=== PATIENT | male | born 1940 | race Caucasian/White ===

== ENCOUNTER 2020-08-23 11:58 | Inpatient (IN) ==
[2020-08-23] MEDS ORDERED: Isovue-370 500 ML BOTTLE IVP ONE (12:18)
[2020-08-23] MEDS ORDERED: Morphine Sulfate 2 MG/ML SYRINGE IVP ONE (12:18)
[2020-08-23 13:03] LABS: Basophils % 0.3 %; Eosinophils % 0.4 %; Hematocrit 33.1 % (37.5-50.1); Hemoglobin 10.8 g/dL (12.9-16.9); Immature Granulocytes % 4.5 % (0-4); Lymphocytes # 0.7 K/mcL (0.6-4.6); Lymphocytes % 8.8 %; Mean Corpuscular HGB Conc 32.6 g/dL (31.6-35.5); Mean Corpuscular Hemoglobin 32.2 pg (28.0-33.3); Mean Corpuscular Volume 98.8 fL (83.0-100.0); Mean Platelet Volume 9.3 fL (9.4-12.4); Monocytes # 0.6 K/mcL (0.0-1.3); Monocytes % 7.7 %; Platelet Count 130 K/mcL (140-400); Red Blood Count 3.35 M/mcL (4.19-5.50); Red Cell Distribution Width 13.8 % (11.5-14.5); Segmented Neutrophils % 78.3 %; White Blood Count 7.6 K/mcL (4.3-11.1)
[2020-08-23 13:22] LABS: Alanine Aminotransferase 22 Units/L (7-52); Albumin 3.1 g/dL (3.5-5.7); Albumin/Globulin Ratio 1.2 (1.1-2.2); Alkaline Phosphatase 76 Units/L (34-104); Aspartate Amino Transferase 18 Units/L (13-39); BUN/Creatinine Ratio 27 (6-26); Bilirubin,Total 0.7 mg/dL (0.3-1.0); Blood Urea Nitrogen 33 mg/dL (8-23); Calcium 8.6 mg/dL (8.6-10.3); Carbon Dioxide 30 mEq/L (23-29); Chloride 100 mEq/L (98-107); Globulin 2.6 g/dL (2.4-3.5); Glucose 113 mg/dL (70-105); Osmolality,Calculated 290 (280-300); Potassium 5.2 mEq/L (3.5-5.1); Sodium 136 mEq/L (136-145); Total Protein 5.7 g/dL (6.4-8.9); Troponin I 0.03 ng/mL (< 0.04); eGFR For African Americans > 60 (> 60); eGFR For Non-African Americans 56 (> 60)
[2020-08-23 13:28] LABS: Bilirubin,Urine Negative (Negative); Blood,Urine Negative (Negative); Clarity,Urine Clear (Clear); Color,Urine Light-Yellow (Yellow); Glucose,Urine (UA) Normal (Normal); Ketones,Urine Negative (Negative); Leukocyte Esterase,Urine Negative (Negative); Nitrite,Urine Negative (Negative); Protein,Urine Trace mg/dL (Neg-Trace)
[2020-08-23] MEDS ORDERED: *HR* OxyCODONE Immed Rel 5 MG TABLET PO STA (15:09)
[2020-08-23] MEDS ORDERED: Ibuprofen 600 MG TABLET PO ONE (15:36)
[2020-08-23] MEDS ORDERED: *HR* HYDROmorphone (PF) 1 MG/ML SYRINGE IVP ONE (15:36)
[2020-08-23] MEDS ORDERED: Naloxone 0.4 MG/ML INJ IVP PRN (16:31)
[2020-08-23] MEDS ORDERED: Acetaminophen 325 MG TABLET PO PRN (16:31)
[2020-08-23] MEDS ORDERED: Mag Hydrox/Al Hydrox/Simeth 30 ML UDC PO PRN (16:31)
[2020-08-23] MEDS ORDERED: Ondansetron ODT 4 MG TAB.RAPDIS SL PRN (16:31)
[2020-08-23] MEDS ORDERED: Albuterol 2.5 MG/3 ML NEBULIZER IH PRN (16:34)
[2020-08-23] MEDS ORDERED: Dexamethasone 4 MG/ML VIAL PO ONE (18:17)
[2020-08-23] MEDS ORDERED: Furosemide 20 MG/2 ML VIAL IVP ONE (18:20)
[2020-08-23] MEDS ORDERED: D5% in Water 1,000 ML IVC PRN (18:22)
[2020-08-23] MEDS ORDERED: *HR* Dextrose 50 % in Water (Vial) 50 ML VIAL IVP PRN (18:22)
[2020-08-23] MEDS ORDERED: Dextrose Gel 15 GM/37.5 ML TUBE PO PRN ×2 (18:22)
[2020-08-23] MEDS ORDERED: Azithromycin 500 MG in 0.9 % Sodium Chloride 250 ML IVPB SCH (19:00)
[2020-08-23 19:32] LABS: Lactate Dehydrogenase 236 Units/L (140-271); Magnesium 1.3 mg/dL (1.6-2.6)
[2020-08-23 19:38] LABS: C-Reactive Protein 130 mg/L (Less than 10)
[2020-08-23 19:57] LABS: Ferritin 528 ng/mL (20-250)
[2020-08-23 20:18] LABS: INR 1.1; Prothrombin Time 12.7 Seconds (9.4-12.1)
[2020-08-23 20:20] LABS: Activated Partial Thrombo Time 25.4 Seconds (26.0-36.0)
[2020-08-23] MEDS: *HR* Heparin 5,000 UNIT/ML VIAL SQ SCH (21:40)
[2020-08-23] MEDS: cefTRIAXone 1,000 MG in Water for inj. (sterile) 10 ML IVP SCH (22:20)
[2020-08-23] MEDS: Insulin LISPRO 300 UNITS/3 ML VIAL SQ SCH (22:23)
[2020-08-24] MEDS: *HR* Heparin 5,000 UNIT/ML VIAL SQ SCH ×3 (05:16→14:08)
[2020-08-24 05:20] LABS: Basophils % 0.3 %; Hematocrit 32.5 % (37.5-50.1); Hemoglobin 10.6 g/dL (12.9-16.9); Immature Granulocytes % 2.2 % (0-4); Lymphocytes # 0.4 K/mcL (0.6-4.6); Lymphocytes % 6.3 %; Mean Corpuscular HGB Conc 32.6 g/dL (31.6-35.5); Mean Corpuscular Hemoglobin 32.4 pg (28.0-33.3); Mean Corpuscular Volume 99.4 fL (83.0-100.0); Mean Platelet Volume 9.3 fL (9.4-12.4); Monocytes # 0.3 K/mcL (0.0-1.3); Monocytes % 4.2 %; Neutrophils # 5.6 K/mcL (1.6-8.9); Platelet Count 110 K/mcL (140-400); Red Blood Count 3.27 M/mcL (4.19-5.50); Red Cell Distribution Width 13.5 % (11.5-14.5); White Blood Count 6.4 K/mcL (4.3-11.1)
[2020-08-24 05:38] LABS: Alanine Aminotransferase 20 Units/L (7-52); Albumin/Globulin Ratio 1.1 (1.1-2.2); Alkaline Phosphatase 78 Units/L (34-104); Aspartate Amino Transferase 19 Units/L (13-39); BUN/Creatinine Ratio 27 (6-26); Bilirubin,Total 0.5 mg/dL (0.3-1.0); Blood Urea Nitrogen 34 mg/dL (8-23); Calcium 8.3 mg/dL (8.6-10.3); Carbon Dioxide 27 mEq/L (23-29); Chloride 98 mEq/L (98-107); Globulin 2.7 g/dL (2.4-3.5); Glucose 259 mg/dL (70-105); Osmolality,Calculated 293 (280-300); Potassium 4.9 mEq/L (3.5-5.1); Sodium 133 mEq/L (136-145); Total Protein 5.7 g/dL (6.4-8.9); eGFR For African Americans > 60 (> 60); eGFR For Non-African Americans 56 (> 60)
[2020-08-24] MEDS: cefTRIAXone 1,000 MG in Water for inj. (sterile) 10 ML IVP SCH (07:46)
[2020-08-24] MEDS: Insulin LISPRO 300 UNITS/3 ML VIAL SQ SCH ×4 (08:00→21:11)
[2020-08-24] MEDS: carvediloL 25 MG TABLET PO SCH (17:30)
[2020-08-24] MEDS: Insulin DETEMIR 100 UNIT/ML X5UNITS SQ SCH (21:11)
[2020-08-25] MEDS: Lisinopril-HCTZ 20-12.5mg TABLET PO SCH (08:07)
[2020-08-25] MEDS: carvediloL 25 MG TABLET PO SCH ×2 (08:07→16:46)
[2020-08-25] MEDS: cefTRIAXone 1,000 MG in Water for inj. (sterile) 10 ML IVP SCH (08:09)
[2020-08-25] MEDS: Insulin LISPRO 300 UNITS/3 ML VIAL SQ SCH ×4 (08:09→22:37)
[2020-08-25] MEDS: *HR* HYDROcodone/Acet 5/325 mg TABLET PO PRN ×2 (08:32→22:36)
[2020-08-25 15:34] LABS: Basophils % 0.4 %; Eosinophils % 0.4 %; Hematocrit 34.4 % (37.5-50.1); Hemoglobin 11.5 g/dL (12.9-16.9); Immature Granulocytes % 2.1 % (0-4); Lymphocytes # 0.4 K/mcL (0.6-4.6); Lymphocytes % 4.7 %; Mean Corpuscular HGB Conc 33.4 g/dL (31.6-35.5); Mean Corpuscular Volume 98.6 fL (83.0-100.0); Mean Platelet Volume 9.8 fL (9.4-12.4); Monocytes # 0.6 K/mcL (0.0-1.3); Monocytes % 6.6 %; Neutrophils # 7.3 K/mcL (1.6-8.9); Platelet Count 155 K/mcL (140-400); Red Blood Count 3.49 M/mcL (4.19-5.50); Red Cell Distribution Width 13.2 % (11.5-14.5); Segmented Neutrophils % 85.8 %; White Blood Count 8.5 K/mcL (4.3-11.1)
[2020-08-25 16:18] LABS: Alanine Aminotransferase 18 Units/L (7-52); Albumin 2.9 g/dL (3.5-5.7); Alkaline Phosphatase 68 Units/L (34-104); Aspartate Amino Transferase 22 Units/L (13-39); BUN/Creatinine Ratio 28 (6-26); Bilirubin,Total 0.4 mg/dL (0.3-1.0); Blood Urea Nitrogen 32 mg/dL (8-23); Calcium 8.3 mg/dL (8.6-10.3); Carbon Dioxide 26 mEq/L (23-29); Chloride 98 mEq/L (98-107); Globulin 2.8 g/dL (2.4-3.5); Glucose 171 mg/dL (70-105); Osmolality,Calculated 285 (280-300); Potassium 4.5 mEq/L (3.5-5.1); Sodium 132 mEq/L (136-145); Total Protein 5.7 g/dL (6.4-8.9); eGFR For African Americans > 60 (> 60); eGFR For Non-African Americans > 60 (> 60)
[2020-08-25] MEDS: Insulin DETEMIR 100 UNIT/ML X5UNITS SQ SCH (22:37)
[2020-08-26 05:52] LABS: Hematocrit 31.4 % (37.5-50.1); Hemoglobin 10.3 g/dL (12.9-16.9); Mean Corpuscular HGB Conc 32.8 g/dL (31.6-35.5); Mean Corpuscular Hemoglobin 32.3 pg (28.0-33.3); Mean Corpuscular Volume 98.4 fL (83.0-100.0); Mean Platelet Volume 9.1 fL (9.4-12.4); Platelet Count 146 K/mcL (140-400); Red Blood Count 3.19 M/mcL (4.19-5.50); Red Cell Distribution Width 13.4 % (11.5-14.5); White Blood Count 5.6 K/mcL (4.3-11.1)
[2020-08-26 05:53] LABS: Basophils % 0.7 %; Eosinophils % 0.4 %; Immature Granulocytes % 3.9 % (0-4); Lymphocytes # 0.5 K/mcL (0.6-4.6); Lymphocytes % 8.9 %; Monocytes # 0.5 K/mcL (0.0-1.3); Monocytes % 9.1 %; Neutrophils # 4.3 K/mcL (1.6-8.9)
[2020-08-26 06:04] LABS: Alanine Aminotransferase 18 Units/L (7-52); Albumin/Globulin Ratio 1.1 (1.1-2.2); Alkaline Phosphatase 76 Units/L (34-104); Aspartate Amino Transferase 17 Units/L (13-39); BUN/Creatinine Ratio 28 (6-26); Bilirubin,Total 0.4 mg/dL (0.3-1.0); Blood Urea Nitrogen 32 mg/dL (8-23); Calcium 8.6 mg/dL (8.6-10.3); Carbon Dioxide 28 mEq/L (23-29); Chloride 98 mEq/L (98-107); Globulin 2.7 g/dL (2.4-3.5); Glucose 141 mg/dL (70-105); Osmolality,Calculated 285 (280-300); Potassium 4.2 mEq/L (3.5-5.1); Sodium 133 mEq/L (136-145); Total Protein 5.7 g/dL (6.4-8.9); eGFR For African Americans > 60 (> 60); eGFR For Non-African Americans > 60 (> 60)
[2020-08-26] MEDS: Insulin LISPRO 300 UNITS/3 ML VIAL SQ SCH ×4 (08:03→20:09)
[2020-08-26] MEDS: Lisinopril-HCTZ 20-12.5mg TABLET PO SCH (08:04)
[2020-08-26] MEDS: carvediloL 25 MG TABLET PO SCH ×2 (08:04→16:55)
[2020-08-26] MEDS: cefTRIAXone 1,000 MG in Water for inj. (sterile) 10 ML IVP SCH (08:05)
[2020-08-26] MEDS: *HR* HYDROcodone/Acet 5/325 mg TABLET PO PRN (11:41)
[2020-08-26] MEDS: *HR* OxyCODONE Immed Rel 5 MG TABLET PO PRN ×2 (16:55→23:09)
[2020-08-26] MEDS: Insulin DETEMIR 100 UNIT/ML X5UNITS SQ SCH (19:44)
[2020-08-27] MEDS: *HR* OxyCODONE Immed Rel 5 MG TABLET PO PRN (06:41)
[2020-08-27 07:04] LABS: Hemoglobin 11.6 g/dL (12.9-16.9); Mean Corpuscular HGB Conc 33.1 g/dL (31.6-35.5); Mean Corpuscular Volume 99.7 fL (83.0-100.0); Mean Platelet Volume 9.1 fL (9.4-12.4); Platelet Count 170 K/mcL (140-400); Red Blood Count 3.51 M/mcL (4.19-5.50); Red Cell Distribution Width 13.6 % (11.5-14.5); White Blood Count 6.3 K/mcL (4.3-11.1)
[2020-08-27 07:22] LABS: Lymphocytes # 0.6 K/mcL (0.6-4.6); Monocytes # 0.4 K/mcL (0.0-1.3); Neutrophils # 5.3 K/mcL (1.6-8.9); Platelet Estimate Normal (Normal); Reactive Lymphocytes Present (Not Present)
[2020-08-27 07:25] LABS: Alanine Aminotransferase 20 Units/L (7-52); Albumin 3.3 g/dL (3.5-5.7); Alkaline Phosphatase 82 Units/L (34-104); Aspartate Amino Transferase 22 Units/L (13-39); BUN/Creatinine Ratio 26 (6-26); Bilirubin,Total 0.6 mg/dL (0.3-1.0); Blood Urea Nitrogen 32 mg/dL (8-23); Calcium 8.9 mg/dL (8.6-10.3); Carbon Dioxide 27 mEq/L (23-29); Chloride 97 mEq/L (98-107); Globulin 3.4 g/dL (2.4-3.5); Glucose 96 mg/dL (70-105); Osmolality,Calculated 283 (280-300); Potassium 4.4 mEq/L (3.5-5.1); Sodium 133 mEq/L (136-145); Total Protein 6.7 g/dL (6.4-8.9); eGFR For African Americans > 60 (> 60); eGFR For Non-African Americans 57 (> 60)
[2020-08-27] MEDS: Insulin LISPRO 300 UNITS/3 ML VIAL SQ SCH ×4 (08:00→21:56)
[2020-08-27 08:04] LABS: Lactate Dehydrogenase 282 Units/L (140-271)
[2020-08-27 08:22] LABS: Ferritin 781 ng/mL (20-250)
[2020-08-27] MEDS: carvediloL 25 MG TABLET PO SCH ×2 (08:30→17:26)
[2020-08-27] MEDS: Lisinopril-HCTZ 20-12.5mg TABLET PO SCH (08:30)
[2020-08-27] MEDS: *HR* HYDROcodone/Acet 5/325 mg TABLET PO PRN ×2 (09:10→17:38)
[2020-08-27 09:15] LABS: Fibrinogen 652 mg/dL (169-393)
[2020-08-27 09:16] LABS: D-Dimer 1401 ng/mLFEU (0-500)
[2020-08-27] MEDS: cefTRIAXone 1,000 MG in Water for inj. (sterile) 10 ML IVP SCH (09:31)
[2020-08-27 11:50] LABS: C-Reactive Protein 125 mg/L (Less than 10)
[2020-08-27] MEDS: *HR* HYDROcodone/Acet 10/325 mg TABLET PO PRN ×2 (14:13→21:56)
[2020-08-27] MEDS: Dexamethasone 4 MG/ML VIAL IVP SCH (14:14)
[2020-08-27] MEDS: Insulin DETEMIR 100 UNIT/ML X5UNITS SQ SCH (21:58)
[2020-08-28] MEDS: *HR* HYDROcodone/Acet 10/325 mg TABLET PO PRN ×2 (04:46→22:03)
[2020-08-28 05:50] LABS: Basophils % 0.4 %; Hematocrit 33.8 % (37.5-50.1); Hemoglobin 10.9 g/dL (12.9-16.9); Immature Granulocytes % 4.9 % (0-4); Lymphocytes # 0.4 K/mcL (0.6-4.6); Lymphocytes % 7.1 %; Mean Corpuscular HGB Conc 32.2 g/dL (31.6-35.5); Mean Corpuscular Hemoglobin 31.8 pg (28.0-33.3); Mean Corpuscular Volume 98.5 fL (83.0-100.0); Mean Platelet Volume 9.4 fL (9.4-12.4); Monocytes # 0.2 K/mcL (0.0-1.3); Monocytes % 3.6 %; Neutrophils # 4.2 K/mcL (1.6-8.9); Platelet Count 176 K/mcL (140-400); Red Blood Count 3.43 M/mcL (4.19-5.50); Red Cell Distribution Width 13.3 % (11.5-14.5); White Blood Count 4.9 K/mcL (4.3-11.1)
[2020-08-28 06:11] LABS: Albumin 3.1 g/dL (3.5-5.7); Albumin/Globulin Ratio 0.9 (1.1-2.2); Bilirubin,Total 0.6 mg/dL (0.3-1.0); Calcium 8.9 mg/dL (8.6-10.3); Globulin 3.3 g/dL (2.4-3.5); Potassium 5.2 mEq/L (3.5-5.1); Total Protein 6.4 g/dL (6.4-8.9)
[2020-08-28] MEDS ORDERED: 0.9 % Sodium Chloride 500 ML IVC ONE (07:33)
[2020-08-28] MEDS: Lisinopril-HCTZ 20-12.5mg TABLET PO SCH (08:55)
[2020-08-28] MEDS: carvediloL 25 MG TABLET PO SCH ×2 (08:55→16:22)
[2020-08-28] MEDS: cefTRIAXone 1,000 MG in Water for inj. (sterile) 10 ML IVP SCH (08:56)
[2020-08-28] MEDS: Insulin LISPRO 300 UNITS/3 ML VIAL SQ SCH ×3 (08:57→22:00)
[2020-08-28] MEDS: Dexamethasone 4 MG/ML VIAL IVP SCH (08:58)
[2020-08-28] MEDS: *HR* HYDROcodone/Acet 5/325 mg TABLET PO PRN (10:05)
[2020-08-28] MEDS ORDERED: 0.9 % Sodium Chloride 250 ML ONE (17:13)
[2020-08-28] MEDS ORDERED: Furosemide 20 MG/2 ML VIAL IVP SCH (19:00)
[2020-08-28] MEDS: Insulin DETEMIR 100 UNIT/ML X5UNITS SQ SCH (22:03)
[2020-08-29 01:16] LABS: Basophils % 0.1 %; Hematocrit 27.3 % (37.5-50.1); Immature Granulocytes % 1.8 % (0-4); Lymphocytes # 0.3 K/mcL (0.6-4.6); Lymphocytes % 4.4 %; Mean Corpuscular HGB Conc 33.7 g/dL (31.6-35.5); Mean Corpuscular Hemoglobin 32.9 pg (28.0-33.3); Mean Corpuscular Volume 97.5 fL (83.0-100.0); Mean Platelet Volume 9.2 fL (9.4-12.4); Monocytes # 0.4 K/mcL (0.0-1.3); Monocytes % 4.5 %; Platelet Count 176 K/mcL (140-400); Red Cell Distribution Width 13.2 % (11.5-14.5); Segmented Neutrophils % 89.2 %
[2020-08-29 01:21] LABS: Hemoglobin 9.2 g/dL (12.9-16.9); White Blood Count 7.8 K/mcL (4.3-11.1)
[2020-08-29 01:37] LABS: Albumin 2.9 g/dL (3.5-5.7); Bilirubin,Total 0.4 mg/dL (0.3-1.0); Calcium 8.6 mg/dL (8.6-10.3); Globulin 2.9 g/dL (2.4-3.5); Potassium 4.8 mEq/L (3.5-5.1); Total Protein 5.8 g/dL (6.4-8.9)
[2020-08-29] MEDS ORDERED: 0.9 % Sodium Chloride 1,000 ML IVC ONE (07:42)
[2020-08-29] MEDS: carvediloL 25 MG TABLET PO SCH ×2 (08:59→17:29)
[2020-08-29] MEDS: Insulin LISPRO 300 UNITS/3 ML VIAL SQ SCH ×4 (08:59→19:23)
[2020-08-29] MEDS: Dexamethasone 4 MG/ML VIAL IVP SCH (08:59)
[2020-08-29 09:10] LABS: D-Dimer 3094 ng/mLFEU (0-500)
[2020-08-29 09:11] LABS: Fibrinogen 740 mg/dL (169-393)
[2020-08-29] MEDS: *HR* HYDROcodone/Acet 10/325 mg TABLET PO PRN ×2 (09:12→19:28)
[2020-08-29 09:57] LABS: Lactate Dehydrogenase 285 Units/L (140-271)
[2020-08-29] MEDS ORDERED: 0.9 % Sodium Chloride 1,000 ML IVC SCH (10:00)
[2020-08-29] MEDS ORDERED: 0.9 % Sodium Chloride 250 ML ONE (11:12)
[2020-08-29 11:56] LABS: Ferritin 1125 ng/mL (20-250)
[2020-08-29] MEDS: Insulin DETEMIR 100 UNIT/ML X5UNITS SQ SCH (20:40)
[2020-08-30 01:18] LABS: Basophils % 0.1 %; Hematocrit 30.9 % (37.5-50.1); Hemoglobin 10.2 g/dL (12.9-16.9); Lymphocytes # 0.3 K/mcL (0.6-4.6); Lymphocytes % 2.8 %; Mean Corpuscular Hemoglobin 32.7 pg (28.0-33.3); Mean Platelet Volume 9.4 fL (9.4-12.4); Monocytes # 0.5 K/mcL (0.0-1.3); Monocytes % 4.6 %; Neutrophils # 10.1 K/mcL (1.6-8.9); Platelet Count 188 K/mcL (140-400); Red Blood Count 3.12 M/mcL (4.19-5.50); Red Cell Distribution Width 13.3 % (11.5-14.5); Segmented Neutrophils % 90.5 %; White Blood Count 11.1 K/mcL (4.3-11.1)
[2020-08-30 01:41] LABS: Alanine Aminotransferase 25 Units/L (7-52); Albumin 3.2 g/dL (3.5-5.7); Alkaline Phosphatase 74 Units/L (34-104); Aspartate Amino Transferase 23 Units/L (13-39); BUN/Creatinine Ratio 40 (6-26); Bilirubin,Total 0.4 mg/dL (0.3-1.0); Blood Urea Nitrogen 48 mg/dL (8-23); Calcium 8.8 mg/dL (8.6-10.3); Carbon Dioxide 23 mEq/L (23-29); Chloride 100 mEq/L (98-107); Globulin 3.1 g/dL (2.4-3.5); Glucose 247 mg/dL (70-105); Osmolality,Calculated 297 (280-300); Potassium 5.1 mEq/L (3.5-5.1); Sodium 133 mEq/L (136-145); Total Protein 6.3 g/dL (6.4-8.9); eGFR For African Americans > 60 (> 60); eGFR For Non-African Americans 59 (> 60)
[2020-08-30] MEDS: *HR* HYDROcodone/Acet 10/325 mg TABLET PO PRN (05:51)
[2020-08-30] MEDS: Insulin DETEMIR 100 UNIT/ML X5UNITS SQ SCH ×2 (08:36→21:34)
[2020-08-30] MEDS: carvediloL 25 MG TABLET PO SCH ×2 (08:36→17:06)
[2020-08-30] MEDS: Dexamethasone 4 MG/ML VIAL IVP SCH (08:37)
[2020-08-30] MEDS: Insulin LISPRO 300 UNITS/3 ML VIAL SQ SCH ×4 (08:38→21:30)
[2020-08-30] MEDS ORDERED: *HR* OxyCODONE Immed Rel 5 MG TABLET PO PRN (11:45)
[2020-08-30] MEDS: *HR* OxyCODONE Immed Rel 5 MG TABLET PO PRN ×2 (12:27→17:23)
[2020-08-31] MEDS: *HR* OxyCODONE Immed Rel 5 MG TABLET PO PRN (04:18)
[2020-08-31 07:36] LABS: Hematocrit 29.6 % (37.5-50.1); Hemoglobin 9.9 g/dL (12.9-16.9); Mean Corpuscular HGB Conc 33.4 g/dL (31.6-35.5); Mean Corpuscular Volume 95.8 fL (83.0-100.0); Mean Platelet Volume 9.4 fL (9.4-12.4); Platelet Count 174 K/mcL (140-400); Red Blood Count 3.09 M/mcL (4.19-5.50); Red Cell Distribution Width 13.2 % (11.5-14.5); White Blood Count 10.2 K/mcL (4.3-11.1)
[2020-08-31 07:54] LABS: BUN/Creatinine Ratio 40 (6-26); Blood Urea Nitrogen 36 mg/dL (8-23); Calcium 9.3 mg/dL (8.6-10.3); Carbon Dioxide 28 mEq/L (23-29); Chloride 99 mEq/L (98-107); Glucose 173 mg/dL (70-105); Osmolality,Calculated 290 (280-300); Potassium 4.9 mEq/L (3.5-5.1); Sodium 134 mEq/L (136-145); eGFR For African Americans > 60 (> 60); eGFR For Non-African Americans > 60 (> 60)
[2020-08-31] MEDS: carvediloL 25 MG TABLET PO SCH ×2 (08:58→18:09)
[2020-08-31] MEDS: Insulin LISPRO 300 UNITS/3 ML VIAL SQ SCH ×4 (08:58→20:18)
[2020-08-31] MEDS: Insulin DETEMIR 100 UNIT/ML X5UNITS SQ SCH ×2 (09:21→20:17)
[2020-08-31] MEDS: Dexamethasone 4 MG/ML VIAL IVP SCH (09:57)
[2020-09-01] MEDS: carvediloL 25 MG TABLET PO SCH ×2 (09:18→17:00)
[2020-09-01] MEDS: Dexamethasone 4 MG/ML VIAL IVP SCH (09:19)
[2020-09-01] MEDS: Insulin LISPRO 300 UNITS/3 ML VIAL SQ SCH ×4 (09:20→20:48)
[2020-09-01] MEDS: Insulin DETEMIR 100 UNIT/ML X5UNITS SQ SCH ×2 (09:21→20:49)
[2020-09-01] MEDS: *HR* OxyCODONE Immed Rel 5 MG TABLET PO PRN ×2 (09:53→17:03)
[2020-09-01] MEDS: lisinopriL 20 MG TABLET PO SCH (16:59)
[2020-09-02] MEDS: Insulin LISPRO 300 UNITS/3 ML VIAL SQ SCH ×2 (08:29→11:50)
[2020-09-02] MEDS: lisinopriL 20 MG TABLET PO SCH (08:33)
[2020-09-02] MEDS: carvediloL 25 MG TABLET PO SCH (08:33)
[2020-09-02] MEDS: *HR* OxyCODONE Immed Rel 5 MG TABLET PO PRN (08:34)
[2020-09-02] MEDS: Insulin DETEMIR 100 UNIT/ML X5UNITS SQ SCH (08:34)
[2020-09-02 09:01] VITALS: BP 152/75
== END 2020-09-02 12:37 | DRG 177 ==
LOC: 2NENU 11:58 → EMEROOARM 11:58 → SUATTDRO 19:33 → 2NENU 20:58 → SUATTDRO 08-25 16:10 → 2NENU 08-27 14:54
PROVIDERS: ADMIT Family Medicine; ATTEND Internal Medicine

== ENCOUNTER 2021-01-30 00:45 | Inpatient (IN) ==
[2021-01-30 02:57] LABS: BUN/Creatinine Ratio 20 (6-26); Blood Urea Nitrogen 23 mg/dL (8-23); Calcium 9.1 mg/dL (8.6-10.3); Carbon Dioxide 27 mEq/L (23-29); Chloride 103 mEq/L (98-107); Glucose 113 mg/dL (70-105); Osmolality,Calculated 292 (280-300); Potassium 4.8 mEq/L (3.5-5.1); Sodium 139 mEq/L (136-145); eGFR For African Americans > 60 (> 60); eGFR For Non-African Americans > 60 (> 60)
[2021-01-30 02:59] LABS: Troponin I < 0.03 ng/mL (< 0.04)
[2021-01-30 05:28] LABS: Hematocrit 33.9 % (37.5-50.1); Hemoglobin 11.1 g/dL (12.9-16.9); Mean Corpuscular HGB Conc 32.7 g/dL (31.6-35.5); Mean Corpuscular Hemoglobin 32.8 pg (28.0-33.3); Mean Corpuscular Volume 100.3 fL (83.0-100.0); Mean Platelet Volume 9.7 fL (9.4-12.4); Platelet Count 179 K/mcL (140-400); Red Blood Count 3.38 M/mcL (4.19-5.50); Red Cell Distribution Width 13.5 % (11.5-14.5); White Blood Count 7.5 K/mcL (4.3-11.1)
[2021-01-30] MEDS ORDERED: Isovue-370 500 ML BOTTLE IVP ONE (08:32)
[2021-01-30 09:07] LABS: Albumin 3.5 g/dL (3.5-5.7); Albumin/Globulin Ratio 1.3 (1.1-2.2); Bilirubin,Direct 0.1 mg/dL (0.0-0.2); Bilirubin,Indirect 0.5 mg/dL (0.0-1.0); Bilirubin,Total 0.6 mg/dL (0.3-1.0); Globulin 2.7 g/dL (2.4-3.5); Total Protein 6.2 g/dL (6.4-8.9)
[2021-01-30 10:17] LABS: Bilirubin,Urine Negative (Negative); Blood,Urine Negative (Negative); Clarity,Urine Clear (Clear); Color,Urine Light-Yellow (Yellow); Glucose,Urine (UA) Normal (Normal); Ketones,Urine Negative (Negative); Leukocyte Esterase,Urine Negative (Negative); Nitrite,Urine Negative (Negative); PH,Urine 7.5 pH Units (5.0-8.0); Protein,Urine Trace mg/dL (Neg-Trace); Specific Gravity,Urine 1.019 (1.010-1.025); Urobilinogen,Urine Normal (Normal)
[2021-01-30] MEDS ORDERED: Azithromycin 500 MG in 0.9 % Sodium Chloride 250 ML IVPB ONE (12:09)
[2021-01-30] MEDS ORDERED: cefTRIAXone 1,000 MG in 0.9 % Sodium Chloride Mini Bag 100 ML IVPB ONE (12:09)
[2021-01-30] MEDS ORDERED: Naloxone 0.4 MG/ML INJ IVP PRN (14:31)
[2021-01-30] MEDS ORDERED: Ondansetron 4 MG/2 ML VIAL IVP PRN (14:31)
[2021-01-30] MEDS ORDERED: Melatonin 3 MG TABLET PO PRN (14:31)
[2021-01-30] MEDS ORDERED: *HR* Dextrose 50 % in Water (Vial) 50 ML VIAL IVP PRN (15:00)
[2021-01-30] MEDS ORDERED: D5% in Water 1,000 ML IVC PRN (15:00)
[2021-01-30] MEDS ORDERED: Dextrose Gel 15 GM/37.5 ML TUBE PO PRN ×2 (15:00)
[2021-01-30] MEDS: cefTRIAXone 1,000 MG in Water for inj. (sterile) 10 ML IVP SCH (16:41)
[2021-01-30] MEDS: carvediloL 25 MG TABLET PO SCH (16:42)
[2021-01-30] MEDS: *HR* HYDROcodone/Acet 5/325 mg TABLET PO PRN ×2 (16:49→23:35)
[2021-01-30] MEDS: Insulin LISPRO 300 UNITS/3 ML VIAL SUBQ SCH ×2 (17:09→20:33)
[2021-01-31 07:49] LABS: Hematocrit 32.4 % (37.5-50.1); Hemoglobin 10.4 g/dL (12.9-16.9); Mean Corpuscular HGB Conc 32.1 g/dL (31.6-35.5); Mean Corpuscular Hemoglobin 31.7 pg (28.0-33.3); Mean Corpuscular Volume 98.8 fL (83.0-100.0); Mean Platelet Volume 9.5 fL (9.4-12.4); Platelet Count 164 K/mcL (140-400); Red Blood Count 3.28 M/mcL (4.19-5.50); Red Cell Distribution Width 13.3 % (11.5-14.5); White Blood Count 6.1 K/mcL (4.3-11.1)
[2021-01-31] MEDS: carvediloL 25 MG TABLET PO SCH ×2 (08:16→16:27)
[2021-01-31] MEDS: Insulin DETEMIR 100 UNIT/ML X5UNITS SUBQ SCH (08:17)
[2021-01-31] MEDS: cefTRIAXone 1,000 MG in Water for inj. (sterile) 10 ML IVP SCH (08:17)
[2021-01-31] MEDS: Insulin LISPRO 300 UNITS/3 ML VIAL SUBQ SCH ×4 (08:23→20:00)
[2021-01-31] MEDS: Lisinopril-HCTZ 20-12.5mg TABLET PO SCH (08:30)
[2021-01-31 08:33] LABS: BUN/Creatinine Ratio 16 (6-26); Blood Urea Nitrogen 20 mg/dL (8-23); Calcium 9.1 mg/dL (8.6-10.3); Carbon Dioxide 26 mEq/L (23-29); Chloride 101 mEq/L (98-107); Glucose 118 mg/dL (70-105); Magnesium 1.1 mg/dL (1.6-2.6); Osmolality,Calculated 288 (280-300); Phosphorous 3.4 mg/dL (2.7-4.5); Potassium 4.3 mEq/L (3.5-5.1); Sodium 137 mEq/L (136-145); eGFR For African Americans > 60 (> 60); eGFR For Non-African Americans 57 (> 60)
[2021-01-31] MEDS ORDERED: Isosorbide MONOnitrate (24 HR) 30 MG TAB.ER.24H PO SCH (09:00)
[2021-01-31] MEDS: Azithromycin 500 MG in 0.9 % Sodium Chloride 250 ML IVPB SCH (09:10)
[2021-01-31] MEDS ORDERED: Perflutren Lipid Microsphere 1.3 ML in 0.9 % Sodium Chloride 8.7 ML IVP PRN (09:25)
[2021-01-31] MEDS: *HR* HYDROcodone/Acet 5/325 mg TABLET PO PRN ×2 (10:41→20:01)
[2021-01-31] MEDS: *HR* Enoxaparin 100 MG/ML SYRINGE SQ SCH (17:51)
[2021-02-01] MEDS: *HR* HYDROcodone/Acet 5/325 mg TABLET PO PRN ×3 (00:06→19:52)
[2021-02-01 02:17] LABS: Hematocrit 27.6 % (37.5-50.1); Hemoglobin 8.9 g/dL (12.9-16.9); Mean Corpuscular HGB Conc 32.2 g/dL (31.6-35.5); Mean Corpuscular Hemoglobin 31.9 pg (28.0-33.3); Mean Corpuscular Volume 98.9 fL (83.0-100.0); Mean Platelet Volume 9.6 fL (9.4-12.4); Platelet Count 159 K/mcL (140-400); Red Blood Count 2.79 M/mcL (4.19-5.50); Red Cell Distribution Width 13.3 % (11.5-14.5); White Blood Count 5.5 K/mcL (4.3-11.1)
[2021-02-01 02:40] LABS: Alanine Aminotransferase 13 Units/L (7-52); Albumin 3.2 g/dL (3.5-5.7); Albumin/Globulin Ratio 1.3 (1.1-2.2); Alkaline Phosphatase 72 Units/L (34-104); Aspartate Amino Transferase 13 Units/L (13-39); BUN/Creatinine Ratio 17 (6-26); Bilirubin,Total 0.4 mg/dL (0.3-1.0); Blood Urea Nitrogen 22 mg/dL (8-23); Calcium 8.3 mg/dL (8.6-10.3); Carbon Dioxide 26 mEq/L (23-29); Chloride 103 mEq/L (98-107); Globulin 2.5 g/dL (2.4-3.5); Glucose 149 mg/dL (70-105); Osmolality,Calculated 292 (280-300); Sodium 138 mEq/L (136-145); Total Protein 5.7 g/dL (6.4-8.9); eGFR For African Americans > 60 (> 60); eGFR For Non-African Americans 52 (> 60)
[2021-02-01] MEDS: *HR* Enoxaparin 100 MG/ML SYRINGE SQ SCH ×2 (04:56→16:52)
[2021-02-01] MEDS: carvediloL 25 MG TABLET PO SCH ×2 (08:46→16:53)
[2021-02-01] MEDS: Lisinopril-HCTZ 20-12.5mg TABLET PO SCH (08:47)
[2021-02-01] MEDS: Insulin LISPRO 300 UNITS/3 ML VIAL SUBQ SCH ×4 (08:49→21:15)
[2021-02-01] MEDS: Azithromycin 500 MG in 0.9 % Sodium Chloride 250 ML IVPB SCH (09:00)
[2021-02-01] MEDS: Insulin DETEMIR 100 UNIT/ML X5UNITS SUBQ SCH (09:01)
[2021-02-01] MEDS: cefTRIAXone 1,000 MG in Water for inj. (sterile) 10 ML IVP SCH (09:03)
[2021-02-01 16:46] LABS: % Iron Saturation 15 % (20-55); Ferritin 213 ng/mL (20-250); Iron 45 mcg/dL (65-175); Transferrin 210 mg/dL (203-362)
[2021-02-01] MEDS ORDERED: Gadolinium Contrast Agent (WT Based) IV PRN (19:09)
[2021-02-01] MEDS: Isosorbide MONOnitrate (24 HR) 30 MG TAB.ER.24H PO SCH (19:52)
[2021-02-02 03:59] LABS: Hematocrit 30.6 % (37.5-50.1); Hemoglobin 9.9 g/dL (12.9-16.9); Mean Corpuscular HGB Conc 32.4 g/dL (31.6-35.5); Mean Corpuscular Hemoglobin 32.5 pg (28.0-33.3); Mean Corpuscular Volume 100.3 fL (83.0-100.0); Mean Platelet Volume 9.5 fL (9.4-12.4); Platelet Count 184 K/mcL (140-400); Red Blood Count 3.05 M/mcL (4.19-5.50); Red Cell Distribution Width 13.2 % (11.5-14.5); White Blood Count 5.9 K/mcL (4.3-11.1)
[2021-02-02 04:17] LABS: Alanine Aminotransferase 13 Units/L (7-52); Albumin 3.4 g/dL (3.5-5.7); Albumin/Globulin Ratio 1.1 (1.1-2.2); Alkaline Phosphatase 77 Units/L (34-104); Aspartate Amino Transferase 15 Units/L (13-39); BUN/Creatinine Ratio 16 (6-26); Bilirubin,Total 0.6 mg/dL (0.3-1.0); Blood Urea Nitrogen 18 mg/dL (8-23); Calcium 8.8 mg/dL (8.6-10.3); Carbon Dioxide 26 mEq/L (23-29); Chloride 102 mEq/L (98-107); Glucose 122 mg/dL (70-105); Osmolality,Calculated 289 (280-300); Sodium 138 mEq/L (136-145); Total Protein 6.4 g/dL (6.4-8.9); eGFR For African Americans > 60 (> 60); eGFR For Non-African Americans > 60 (> 60)
[2021-02-02] MEDS: *HR* HYDROcodone/Acet 5/325 mg TABLET PO PRN ×3 (04:42→20:47)
[2021-02-02] MEDS: *HR* Enoxaparin 100 MG/ML SYRINGE SQ SCH (06:06)
[2021-02-02] MEDS: Lisinopril-HCTZ 20-12.5mg TABLET PO SCH (07:44)
[2021-02-02] MEDS: carvediloL 25 MG TABLET PO SCH ×2 (07:44→15:56)
[2021-02-02] MEDS: Insulin DETEMIR 100 UNIT/ML X5UNITS SUBQ SCH (07:45)
[2021-02-02] MEDS: cefTRIAXone 1,000 MG in Water for inj. (sterile) 10 ML IVP SCH (07:46)
[2021-02-02] MEDS: Azithromycin 500 MG in 0.9 % Sodium Chloride 250 ML IVPB SCH (07:49)
[2021-02-02] MEDS: Insulin LISPRO 300 UNITS/3 ML VIAL SUBQ SCH ×4 (07:50→20:47)
[2021-02-02] MEDS: Apixaban 2.5 MG TABLET PO SCH (20:46)
[2021-02-02] MEDS: Isosorbide MONOnitrate (24 HR) 30 MG TAB.ER.24H PO SCH (20:46)
[2021-02-03] MEDS: Insulin LISPRO 300 UNITS/3 ML VIAL SUBQ SCH ×4 (07:15→21:01)
[2021-02-03 07:34] LABS: Hematocrit 29.3 % (37.5-50.1); Hemoglobin 9.4 g/dL (12.9-16.9); Mean Corpuscular HGB Conc 32.1 g/dL (31.6-35.5); Mean Corpuscular Hemoglobin 31.8 pg (28.0-33.3); Mean Platelet Volume 9.4 fL (9.4-12.4); Platelet Count 213 K/mcL (140-400); Red Blood Count 2.96 M/mcL (4.19-5.50); Red Cell Distribution Width 13.6 % (11.5-14.5); White Blood Count 6.3 K/mcL (4.3-11.1)
[2021-02-03 07:43] LABS: Alanine Aminotransferase 19 Units/L (7-52); Albumin 3.4 g/dL (3.5-5.7); Albumin/Globulin Ratio 1.2 (1.1-2.2); Alkaline Phosphatase 80 Units/L (34-104); Aspartate Amino Transferase 22 Units/L (13-39); BUN/Creatinine Ratio 16 (6-26); Bilirubin,Total 0.5 mg/dL (0.3-1.0); Blood Urea Nitrogen 17 mg/dL (8-23); Calcium 8.8 mg/dL (8.6-10.3); Carbon Dioxide 26 mEq/L (23-29); Chloride 102 mEq/L (98-107); Globulin 2.8 g/dL (2.4-3.5); Glucose 139 mg/dL (70-105); Osmolality,Calculated 288 (280-300); Potassium 3.9 mEq/L (3.5-5.1); Sodium 137 mEq/L (136-145); Total Protein 6.2 g/dL (6.4-8.9); eGFR For African Americans > 60 (> 60); eGFR For Non-African Americans > 60 (> 60)
[2021-02-03] MEDS: Apixaban 2.5 MG TABLET PO SCH (08:28)
[2021-02-03] MEDS: Lisinopril-HCTZ 20-12.5mg TABLET PO SCH (08:29)
[2021-02-03] MEDS: carvediloL 25 MG TABLET PO SCH ×2 (08:29→16:29)
[2021-02-03] MEDS: Azithromycin 500 MG in 0.9 % Sodium Chloride 250 ML IVPB SCH (08:30)
[2021-02-03] MEDS: cefTRIAXone 1,000 MG in Water for inj. (sterile) 10 ML IVP SCH (08:30)
[2021-02-03] MEDS: *HR* HYDROcodone/Acet 5/325 mg TABLET PO PRN ×2 (08:40→16:29)
[2021-02-03] MEDS: Insulin DETEMIR 100 UNIT/ML X5UNITS SUBQ SCH (08:40)
[2021-02-03] MEDS: Isosorbide MONOnitrate (24 HR) 30 MG TAB.ER.24H PO SCH (20:59)
[2021-02-03] MEDS: *HR* Enoxaparin 100 MG/ML SYRINGE SQ SCH (21:00)
[2021-02-03] MEDS: CLEAR EYES NATURAL TEARS 15 ML BOTTLE BOTH EYES SCH (21:00)
[2021-02-04 03:48] LABS: Hematocrit 31.3 % (37.5-50.1); Hemoglobin 10.2 g/dL (12.9-16.9); Mean Corpuscular HGB Conc 32.6 g/dL (31.6-35.5); Mean Corpuscular Hemoglobin 32.8 pg (28.0-33.3); Mean Corpuscular Volume 100.6 fL (83.0-100.0); Mean Platelet Volume 9.6 fL (9.4-12.4); Platelet Count 234 K/mcL (140-400); Red Blood Count 3.11 M/mcL (4.19-5.50); Red Cell Distribution Width 13.5 % (11.5-14.5); White Blood Count 6.7 K/mcL (4.3-11.1)
[2021-02-04 04:04] LABS: Alanine Aminotransferase 37 Units/L (7-52); Albumin 3.6 g/dL (3.5-5.7); Albumin/Globulin Ratio 1.2 (1.1-2.2); Alkaline Phosphatase 78 Units/L (34-104); Aspartate Amino Transferase 46 Units/L (13-39); BUN/Creatinine Ratio 20 (6-26); Bilirubin,Total 0.4 mg/dL (0.3-1.0); Blood Urea Nitrogen 22 mg/dL (8-23); Calcium 8.8 mg/dL (8.6-10.3); Carbon Dioxide 23 mEq/L (23-29); Chloride 103 mEq/L (98-107); Globulin 3.1 g/dL (2.4-3.5); Glucose 139 mg/dL (70-105); Osmolality,Calculated 292 (280-300); Potassium 4.2 mEq/L (3.5-5.1); Sodium 138 mEq/L (136-145); Total Protein 6.7 g/dL (6.4-8.9); eGFR For African Americans > 60 (> 60); eGFR For Non-African Americans > 60 (> 60)
[2021-02-04] MEDS: Insulin LISPRO 300 UNITS/3 ML VIAL SUBQ SCH ×4 (08:01→20:52)
[2021-02-04] MEDS: cefTRIAXone 1,000 MG in Water for inj. (sterile) 10 ML IVP SCH (08:11)
[2021-02-04] MEDS: Lisinopril-HCTZ 20-12.5mg TABLET PO SCH (08:12)
[2021-02-04] MEDS: *HR* Enoxaparin 100 MG/ML SYRINGE SQ SCH ×2 (08:12→20:52)
[2021-02-04] MEDS: Azithromycin 250 MG TABLET PO SCH (08:13)
[2021-02-04] MEDS: carvediloL 25 MG TABLET PO SCH ×2 (08:13→17:25)
[2021-02-04] MEDS: Insulin DETEMIR 100 UNIT/ML X5UNITS SUBQ SCH (08:16)
[2021-02-04] MEDS: *HR* HYDROcodone/Acet 5/325 mg TABLET PO PRN ×3 (08:22→17:24)
[2021-02-04] MEDS: Isosorbide MONOnitrate (24 HR) 30 MG TAB.ER.24H PO SCH (20:51)
[2021-02-04] MEDS: CLEAR EYES NATURAL TEARS 15 ML BOTTLE BOTH EYES SCH (20:52)
[2021-02-05] MEDS: *HR* HYDROcodone/Acet 5/325 mg TABLET PO PRN ×4 (02:35→21:13)
[2021-02-05 03:36] LABS: Hematocrit 29.3 % (37.5-50.1); Hemoglobin 9.5 g/dL (12.9-16.9); Mean Corpuscular HGB Conc 32.4 g/dL (31.6-35.5); Mean Corpuscular Hemoglobin 32.1 pg (28.0-33.3); Mean Platelet Volume 9.4 fL (9.4-12.4); Platelet Count 250 K/mcL (140-400); Red Blood Count 2.96 M/mcL (4.19-5.50); Red Cell Distribution Width 13.3 % (11.5-14.5); White Blood Count 6.3 K/mcL (4.3-11.1)
[2021-02-05 03:55] LABS: Alanine Aminotransferase 37 Units/L (7-52); Albumin 3.5 g/dL (3.5-5.7); Albumin/Globulin Ratio 1.3 (1.1-2.2); Alkaline Phosphatase 79 Units/L (34-104); Aspartate Amino Transferase 36 Units/L (13-39); BUN/Creatinine Ratio 21 (6-26); Bilirubin,Total 0.4 mg/dL (0.3-1.0); Blood Urea Nitrogen 26 mg/dL (8-23); Calcium 8.6 mg/dL (8.6-10.3); Carbon Dioxide 24 mEq/L (23-29); Chloride 103 mEq/L (98-107); Globulin 2.8 g/dL (2.4-3.5); Glucose 148 mg/dL (70-105); Osmolality,Calculated 292 (280-300); Sodium 137 mEq/L (136-145); Total Protein 6.3 g/dL (6.4-8.9); eGFR For African Americans > 60 (> 60); eGFR For Non-African Americans 58 (> 60)
[2021-02-05] MEDS: Insulin LISPRO 300 UNITS/3 ML VIAL SUBQ SCH ×4 (08:09→21:53)
[2021-02-05] MEDS: *HR* Enoxaparin 100 MG/ML SYRINGE SQ SCH ×2 (08:11→20:57)
[2021-02-05] MEDS: Azithromycin 250 MG TABLET PO SCH (08:22)
[2021-02-05] MEDS: Lisinopril-HCTZ 20-12.5mg TABLET PO SCH (08:22)
[2021-02-05] MEDS: cefTRIAXone 1,000 MG in Water for inj. (sterile) 10 ML IVP SCH (08:23)
[2021-02-05] MEDS: carvediloL 25 MG TABLET PO SCH ×2 (08:23→18:01)
[2021-02-05] MEDS: Insulin DETEMIR 100 UNIT/ML X5UNITS SUBQ SCH (08:30)
[2021-02-05] MEDS: Isosorbide MONOnitrate (24 HR) 30 MG TAB.ER.24H PO SCH (20:57)
[2021-02-05] MEDS: CLEAR EYES NATURAL TEARS 15 ML BOTTLE BOTH EYES SCH (20:58)
[2021-02-06] MEDS: *HR* HYDROcodone/Acet 5/325 mg TABLET PO PRN ×2 (03:14→12:05)
[2021-02-06 07:25] VITALS: BP 112/56
[2021-02-06] MEDS: carvediloL 25 MG TABLET PO SCH (08:12)
[2021-02-06] MEDS: Lisinopril-HCTZ 20-12.5mg TABLET PO SCH (08:12)
[2021-02-06] MEDS: Azithromycin 250 MG TABLET PO SCH (08:13)
[2021-02-06] MEDS: Insulin LISPRO 300 UNITS/3 ML VIAL SUBQ SCH (08:13)
[2021-02-06] MEDS: cefTRIAXone 1,000 MG in Water for inj. (sterile) 10 ML IVP SCH (08:14)
[2021-02-06] MEDS: *HR* Enoxaparin 100 MG/ML SYRINGE SQ SCH (08:16)
[2021-02-06] MEDS: Insulin DETEMIR 100 UNIT/ML X5UNITS SUBQ SCH (08:16)
== END 2021-02-06 12:54 | disposition home or self-care (01) | DRG 299 ==
LOC: 3BNU 00:45 → EMEROOARM 00:45 → SUATTDRO 14:00 → 3BNU 15:36
PROVIDERS: ADMIT Internal Medicine; ATTEND Registered Nurse

== ENCOUNTER 2021-02-17 16:53 | Observation (INO) ==
[2021-02-17] MEDS ORDERED: Isovue-370 500 ML BOTTLE IVP ONE (17:24)
[2021-02-17 17:34] LABS: Basophils # 0.1 K/mcL (0.0-0.2); Basophils % 0.7 %; Eosinophils # 0.1 K/mcL (0.0-0.6); Eosinophils % 0.8 %; Hemoglobin 11.4 g/dL (12.9-16.9); Immature Granulocytes % 2.5 % (0-4); Lymphocytes # 1.6 K/mcL (0.6-4.6); Lymphocytes % 18.1 %; Mean Corpuscular HGB Conc 33.5 g/dL (31.6-35.5); Mean Corpuscular Hemoglobin 32.9 pg (28.0-33.3); Mean Platelet Volume 9.1 fL (9.4-12.4); Monocytes # 1.2 K/mcL (0.0-1.3); Neutrophils # 5.5 K/mcL (1.6-8.9); Platelet Count 293 K/mcL (140-400); Red Blood Count 3.47 M/mcL (4.19-5.50); Segmented Neutrophils % 63.9 %; White Blood Count 8.6 K/mcL (4.3-11.1)
[2021-02-17 17:54] LABS: BUN/Creatinine Ratio 16 (6-26); Blood Urea Nitrogen 18 mg/dL (8-23); Calcium 9.4 mg/dL (8.6-10.3); Carbon Dioxide 25 mEq/L (23-29); Chloride 103 mEq/L (98-107); Glucose 98 mg/dL (70-105); Magnesium 1.2 mg/dL (1.6-2.6); Osmolality,Calculated 288 (280-300); Potassium 4.1 mEq/L (3.5-5.1); Sodium 138 mEq/L (136-145); eGFR For African Americans > 60 (> 60); eGFR For Non-African Americans > 60 (> 60)
[2021-02-17 18:18] LABS: Troponin I 0.06 ng/mL (< 0.04)
[2021-02-17] MEDS ORDERED: Aspirin 325 MG TABLET PO ONE (18:28)
[2021-02-17] MEDS ORDERED: Naloxone 0.4 MG/ML INJ IVP PRN (19:31)
[2021-02-17] MEDS ORDERED: Ondansetron 4 MG/2 ML VIAL IVP PRN (19:31)
[2021-02-17] MEDS ORDERED: Acetaminophen 325 MG TABLET PO PRN (19:31)
[2021-02-17] MEDS ORDERED: Melatonin 3 MG TABLET PO PRN (19:31)
[2021-02-17] MEDS ORDERED: *HR* Dextrose 50 % in Water (Vial) 50 ML VIAL IVP PRN (19:35)
[2021-02-17] MEDS ORDERED: D5% in Water 1,000 ML IVC PRN (19:35)
[2021-02-17] MEDS ORDERED: Dextrose Gel 15 GM/37.5 ML TUBE PO PRN ×2 (19:35)
[2021-02-17] MEDS ORDERED: Insulin LISPRO 300 UNITS/3 ML VIAL SUBQ SCH (21:00)
[2021-02-17] MEDS: *HR* Enoxaparin 100 MG/ML SYRINGE SQ SCH (21:25)
[2021-02-17] MEDS: carvediloL 25 MG TABLET PO SCH (21:25)
[2021-02-18 00:25] LABS: Basophils # 0.1 K/mcL (0.0-0.2); Eosinophils # 0.1 K/mcL (0.0-0.6); Eosinophils % 1.1 %; Hematocrit 34.1 % (37.5-50.1); Immature Granulocytes % 1.3 % (0-4); Lymphocytes # 1.5 K/mcL (0.6-4.6); Lymphocytes % 15.7 %; Mean Corpuscular HGB Conc 32.3 g/dL (31.6-35.5); Mean Corpuscular Hemoglobin 31.9 pg (28.0-33.3); Mean Corpuscular Volume 98.8 fL (83.0-100.0); Mean Platelet Volume 9.2 fL (9.4-12.4); Monocytes # 1.3 K/mcL (0.0-1.3); Monocytes % 13.9 %; Neutrophils # 6.2 K/mcL (1.6-8.9); Platelet Count 275 K/mcL (140-400); Red Blood Count 3.45 M/mcL (4.19-5.50); Red Cell Distribution Width 13.8 % (11.5-14.5); White Blood Count 9.2 K/mcL (4.3-11.1)
[2021-02-18 00:27] LABS: INR 1.2; Prothrombin Time 13.5 Seconds (9.4-12.1)
[2021-02-18 00:48] LABS: BUN/Creatinine Ratio 14 (6-26); Blood Urea Nitrogen 16 mg/dL (8-23); Calcium 9.2 mg/dL (8.6-10.3); Carbon Dioxide 22 mEq/L (23-29); Chloride 103 mEq/L (98-107); Chol/HDL Ratio 4.3 (0-4.9); Cholesterol 172 mg/dL (< 200); Glucose 121 mg/dL (70-105); HDL Cholesterol 40 mg/dL (40-59); LDL Cholesterol,Calculated 98 mg/dL (< 100); Magnesium 1.6 mg/dL (1.6-2.6); Osmolality,Calculated 284 (280-300); Potassium 3.6 mEq/L (3.5-5.1); Sodium 136 mEq/L (136-145); Triglycerides 168 mg/dL (< 150); eGFR For African Americans > 60 (> 60); eGFR For Non-African Americans 60 (> 60)
[2021-02-18 06:35] VITALS: BP 164/82
[2021-02-18] MEDS ORDERED: Insulin LISPRO 300 UNITS/3 ML VIAL SUBQ SCH (07:30)
[2021-02-18] MEDS: carvediloL 25 MG TABLET PO SCH (08:26)
[2021-02-18] MEDS: *HR* Enoxaparin 100 MG/ML SYRINGE SQ SCH (08:27)
[2021-02-18] MEDS ORDERED: Insulin DETEMIR 100 UNIT/ML X5UNITS SUBQ SCH (09:00)
[2021-02-18] MEDS ORDERED: Isosorbide MONOnitrate (24 HR) 30 MG TAB.ER.24H PO SCH (09:00)
[2021-02-18] MEDS ORDERED: *HR* Amiodarone 200 MG TABLET PO SCH (09:00)
[2021-02-18] MEDS ORDERED: Lisinopril-HCTZ 20-12.5mg TABLET PO SCH (09:00)
== END 2021-02-18 11:54 | disposition home or self-care (01) ==
LOC: 3BNU 16:53 → EMEROOARM 16:53 → 3BNU 20:15
PROVIDERS: ADMIT Internal Medicine; ATTEND Internal Medicine